=== PATIENT | male | born 1950 | race Caucasian/White ===

== ENCOUNTER 2018-07-01 20:26 | Observation (INO) ==
[2018-07-01] MEDS ORDERED: Sod Chloride 0.9% Inj 1,000 ML IV.SIG ONE (21:18)
--- NOTE | 2018-07-01 21:37 | XR ---
EXAM DATE: 07/01/2018 9:18 PM EDT AGE/SEX: 67 years / Male INDICATIONS: Short of breath. CLINICAL DATA: This is the patient's initial encounter. Patient reports that signs and symptoms have been present for 1 day and indicates a pain score of 0/10. MEDICAL/SURGICAL HISTORY: None. None. COMPARISON: No prior exams available for comparison. FINDINGS: A single AP view of the chest demonstrates the lungs to be symmetrically aerated without evidence of mass, infiltrate or effusion. The cardiomediastinal contours are unremarkable. Osseous structures a re intact. CONCLUSION: Negative examination. Electronically signed by: Jaron Howard MD 07/01/2018 9:36 PM EDT
--- NOTE | 2018-07-01 21:53 | CT ---
EXAM DATE: 07/01/2018 9:30 PM EDT AGE/SEX: 67 years / Male INDICATIONS: Syncopal episode. Found on ground. Dizziness and chest pain. Shortness of breath. CLINICAL DATA: This is the patient's initial encounter. Patient reports that signs and symptoms have been present for 1 day and indicates a pain score of 0/10. MEDICAL/SURGICAL HISTORY: Myocardial infarction. None. RADIATION DOSE: 31.77 CTDI (mGy) COMPARISON: No prior exams available for comparison. TECHNIQUE: CT of the head without contrast. Using automated exposure control and adjustment of the mA and/or kV according to patient size, radiation dose was kept as low as reasonably achievable to ob tain optimal diagnostic quality images. DICOM format image data is available electronically for revi ew and comparison. FINDINGS: Cerebrum: The ventricles are normal for age. No evidence of midline shift, mass lesion, hemorrhage or acute infarction. No extraaxial fluid collections are seen. Posterior Fossa: The cerebellum and brainstem are intact. The 4th ventricle is midline. The cerebe llopontine angle is unremarkable. Extracranial: The visualized portion of the orbits is intact. Skull: The calvaria is intact. No evidence of skull fracture. CONCLUSION: 1. Negative CT Head non contrast. . Electronically signed by: Isaiah Suarez MD 07/01/2018 9:52 PM EDT
--- NOTE | 2018-07-01 21:57 | CT ---
EXAM DATE: 07/01/2018 9:30 PM EDT AGE/SEX: 67 years / Male INDICATIONS: Syncopal episode. Found on ground. CLINICAL DATA: This is the patient's initial encounter. Patient reports that signs and symptoms have been present for 1 day and indicates a pain score of 0/10. MEDICAL/SURGICAL HISTORY: Myocardial infarction. None. RADIATION DOSE: 17.19 CTDI (mGy) COMPARISON: POI, MR LUMBAR SPINE W AND W/O CONTRAST, 05/15/2018. . TECHNIQUE: Contiguous axial images were obtained using helical multirow detector technique. The vol umetric data was post-processed with multiplanar reconstruction in oblique axial, sagittal, and coron al planes. Using automated exposure control and adjustment of the mA and/or kV according to patient s ize, radiation dose was kept as low as reasonably achievable to obtain optimal diagnostic quality neftaly ges. DICOM format image data is available electronically for review and comparison. FINDINGS: Alignment is normal. Multilevel osteophyte formation is seen. There is moderate disc space narrowing at C6-7 with endplate sclerosis and osteophytosis. Prominent C7 superior endplate Schmorl node is not ed. There are no compression deformities. No prevertebral soft tissue swelling. No fracture or listhe sis. CONCLUSION: 1. Degenerative changes without evidence for acute fracture. Electronically signed by: Jaron Howard MD 07/01/2018 9:56 PM EDT
[2018-07-01 21:58] LABS: Baso % (Auto) 0.2 % (0.0-2.0); Eos % (Auto) 0.4 % (0.0-4.0); Hematocrit 43.9 % (39.0-51.0); Hemoglobin 14.9 gm/dL (13.0-17.0); Lymph % (Auto) 17.7 % (9.0-44.0); Mean Corpuscular HGB Conc 34.1 % (32.0-36.0); Mean Corpuscular Hemoglobin 31.6 pg (27.0-34.0); Mean Corpuscular Volume 92.7 fL (80.0-100.0); Mean Platelet Volume 7.6 fL (7.0-11.0); Mono # (Auto) 0.9 th/mm3 (0.0-0.9); Mono % (Auto) 8.4 % (0.0-8.0); Neut # (Auto) 8.1 th/mm3 (1.8-7.7); Neut % (Auto) 73.3 % (16.0-70.0); Platelet Count 261 th/mm3 (150-450); Red Blood Count 4.73 mil/mm3 (4.50-5.90); Red Cell Distribution Width 13.4 % (11.6-17.2)
[2018-07-01 22:15] LABS: Anion Gap 10 meq/L (5-15); Blood Urea Nitrogen 20 mg/dL (7-18); Calcium 8.3 mg/dL (8.5-10.1); Carbon Dioxide 21.7 meq/L (21.0-32.0); Chloride 109 meq/L (98-107); Glomerular Filtration Rate 70 mL/min (>89); Glucose,Random 103 mg/dL (74-106); INR 1.1 Ratio; Magnesium 2.3 mg/dL (1.5-2.5); Potassium 3.4 meq/L (3.5-5.1); Prothrombin Time 10.7 sec (9.8-11.6); Sodium 141 meq/L (136-145)
[2018-07-01 22:22] LABS: Activated Partial Thrombo Time 20.3 sec (24.3-30.1)
--- NOTE | 2018-07-01 22:28 | ED ---
HPI General Chief Complaint: Syncope Stated Complaint: Medical Time Seen by Provider: 07/01/18 21:18 Source: patient, family and EMS Mode of arrival: EMS Limitations: no limitations History of Present Illness HPI narrative: 67-year-old male presents to the emergency department by EMS report from his home where he apparently had an unwitnessed syncopal episode in his front yard. states she was taking the dog for a walk and found him face down in the front yard. Patient was awake but mildly confused upon her arrival. Patient had apparently taken as sublingual nitroglycerin at some time prior to her just after this event did not actually see him take the nitroglycerin. asked him if he was having chest pain and he did not answer her and so she thought perhaps he did not want to tell her he was having chest pain and administered additional several nitroglycerin which she reportedly spit out. Patient states she had to roll him over and that she denies any signs of trauma he had been drinking alcohol and had been very emotionally distraught as he has been having director of business systems problems. Patient here is conversant oriented states that he has been very upset all day poor oral intake admits to drinking 2 alcoholic beverages which he does not typically do and was outside yelling on the phone and then he found himself on the ground with his helping him with a nitroglycerin. Patient does not recall whether he did or does not have chest pain. He has no chest pain at this time. Patient denies any head pain neck pain chest pain back pain abdominal pain pelvic pain or extremity pain. Patient denies any shortness of breath. Patient was not diaphoretic. Patient does complain of nausea. Patient refused Zofran in route by paramedics. Patient continues to complain of nausea at this time. MD complaint: Reports loss of consciousness and collapsed Onset (ago): minute(s) -: minutes(s) Prodromal symptoms: Reports other (Recent argument on phone yelling at his director of business systems very agitated had been drinking alcohol) Witnessed: no Context: Reports during exertion, standing up and alcohol use Injuries sustained associated with event: Reports none Current symptoms: Reports none History: Reports history of CAD; Denies seizure disorder, previous syncopal episode, seizure disorder, pacemaker, AICD and family history of sudden Treatments prior to arrival: Reports none Related Data Home Medications Medication Instructions Recorded Confirmed No Known Home Medications 10/17/18 10/17/18 Allergies Allergy/AdvReac Type Severity Reaction Status Date / Time No Known Allergies Allergy Mild Uncoded 05/01/08 08:43 Review of Systems ROS: all other systems reviewed are negative PMFSH Medical History Medical History Anxiety (Acute) Heart attack (Acute) High cholesterol (Acute) Social History Social History Substance History: No History of Abuse Smoking Status: Never smoker How Often Do You Have a Drink Containing Alcohol: 2 to 3 times a week Recent Travel in [facility] within the Last 8 Weeks: No Recent Out of Country Travel within the Last 8 Weeks: No Immunization History Tetanus Immunization: >5 Years Exam Narrative Exam Narrative: GENERAL: Well-developed well-nourished male in no acute distress no respiratory distress; GCS 15 SKIN: Focused skin assessment warm/dry. HEAD: Atraumatic. Normocephalic. EYES: Pupils equal and round. No scleral icterus. No injection or drainage. ENT: No nasal bleeding or discharge. Mucous membranes pink and moist. NECK: Trachea midline. No JVD. CARDIOVASCULAR: Regular rate and rhythm. No murmur appreciated. RESPIRATORY: No accessory muscle use. Clear to auscultation. Breath sounds equal bilaterally. GASTROINTESTINAL: Abdomen soft, non-tender, nondistended. Hepatic and splenic margins not palpable. MUSCULOSKELETAL: No obvious deformities. No clubbing. No cyanosis. No edema. NEUROLOGICAL: Awake and alert. No obvious cranial nerve deficits. Motor grossly within normal limits. Normal speech. PSYCHIATRIC: Appropriate mood and affect; insight and judgment normal. Course Consultations Consultation #1: Patient discussed with on-call [facility] physician Dr. Gonzalez who recommends patient for observation on the service of Dr. Desirite request observation orders to be entered to the emergency department Initial Documented Vital Signs Temperature 97.5 F L 07/01/18 20:36 Pulse Rate 61 07/01/18 20:36 Respiratory Rate 30 H 07/01/18 20:36 Blood Pressure 155/75 H 07/01/18 20:36 Pulse Oximetry 97 07/01/18 20:36 Last Documented Vital Signs Temperature 97.5 F L 07/01/18 20:50 Pulse Rate 61 07/01/18 23:12 Respiratory Rate 16 07/01/18 23:12 Blood Pressure 144/74 H 07/01/18 23:12 Pulse Oximetry 95 07/01/18 23:12 Medical Decision Making MDM Narrative Medical decision making narrative: 67-year-old male with unwitnessed syncopal episode with history of CAD presents for evaluation placed on patient monitor IV access obtained specimens collected and sent for resulting. EKG sinus rhythm no acute ST elevation or injury pattern change noted Lab values grossly normal range except for mild decreased potassium of 3.4 troponin I is less than 0.02 not elevated serum alcohol however is elevated 141 Chest x-ray reveals no acute process CT brain noncontrast is negative for acute process and CT cervical spine reveals no acute abnormality per reading radiologist Patient's case discussed with on-call [facility] physician Dr. Gonzalez who recommends patient to be admitted as observation to Dr. Cuellar and requests that observation orders to be entered on his behalf with repeat troponin patient has already had his second troponin ordered and will have additional troponin ordered at approximately 3 AM. All further orders per Dr. Gonzalez and Dr. Cuellar. Patient and family informed of lab results and recommendation for observation admission with which they are agreeable Medical Screen Exam Complete: Yes Emergency Medical Condition: Yes Differential Diagnosis Differential Diagnosis: Syncope, arrhythmia, ACS, MT, alcohol intoxication, vasovagal syncope/near syncope, TIA, CVA, seizure, minor closed head injury, ICH , cervical spine sprain strain, dehydration, electrolyte disturbance Medical Records Medical records reviewed: Yes I reviewed the patient's medical records. Lab Data Lab results reviewed: Yes I reviewed the patient's lab results. Result diagrams: 07/01/18 20:27 07/01/18 20:27 Lab Results 07/01/18 07/01/18 07/01/18 Range/Units 20:27 20:27 20:27 WBC 11.0 (4.0-11.0) th/mm3 RBC 4.73 (4.50-5.90) mil/mm3 Hgb 14.9 (13.0-17.0) gm/dL Hct 43.9 (39.0-51.0) % MCV 92.7 (80.0-100.0) fL MCH 31.6 (27.0-34.0) pg MCHC 34.1 (32.0-36.0) % RDW 13.4 (11.6-17.2) % Plt Count 261 (150-450) th/mm3 MPV 7.6 (7.0-11.0) fL Neut % (Auto) 73.3 H (16.0-70.0) % Lymph % (Auto) 17.7 (9.0-44.0) % Dewitt % (Auto) 8.4 H (0.0-8.0) % Eos % (Auto) 0.4 (0.0-4.0) % Baso % (Auto) 0.2 (0.0-2.0) % Neut # (Auto) 8.1 H (1.8-7.7) th/mm3 Lymph # (Auto) 2.0 (1.0-4.8) th/mm3 Dewitt # (Auto) 0.9 (0.0-0.9) th/mm3 Eos # (Auto) 0.0 (0.0-0.4) th/mm3 Baso # (Auto) 0.0 (0.0-0.2) th/mm3 WBC Differential . Differential Comment Auto diff final PT 10.7 (9.8-11.6) sec INR 1.1 Ratio APTT 20.3 L (24.3-30.1) sec Sodium 141 (136-145) meq/L Potassium 3.4 L (3.5-5.1) meq/L Chloride 109 H (98-107) meq/L Carbon Dioxide 21.7 (21.0-32.0) meq/L Anion Gap 10 (5-15) meq/L BUN 20 H (7-18) mg/dL Creatinine 1.06 (0.60-1.30) mg/dL Estimated GFR 70 L (>89) mL/min Random Glucose 103 (74-106) mg/dL Calcium 8.3 L (8.5-10.1) mg/dL Magnesium 2.3 (1.5-2.5) mg/dL Troponin I Less than 0.02 L (0.02-0.05) ng/mL Serum Alcohol (0-5) mg/dL 07/01/18 Range/Units 20:27 WBC (4.0-11.0) th/mm3 RBC (4.50-5.90) mil/mm3 Hgb (13.0-17.0) gm/dL Hct (39.0-51.0) % MCV (80.0-100.0) fL MCH (27.0-34.0) pg MCHC (32.0-36.0) % RDW (11.6-17.2) % Plt Count (150-450) th/mm3 MPV (7.0-11.0) fL Neut % (Auto) (16.0-70.0) % Lymph % (Auto) (9.0-44.0) % Dewitt % (Auto) (0.0-8.0) % Eos % (Auto) (0.0-4.0) % Baso % (Auto) (0.0-2.0) % Neut # (Auto) (1.8-7.7) th/mm3 Lymph # (Auto) (1.0-4.8) th/mm3 Dewitt # (Auto) (0.0-0.9) th/mm3 Eos # (Auto) (0.0-0.4) th/mm3 Baso # (Auto) (0.0-0.2) th/mm3 WBC Differential Differential Comment PT (9.8-11.6) sec INR Ratio APTT (24.3-30.1) sec Sodium (136-145) meq/L Potassium (3.5-5.1) meq/L Chloride (98-107) meq/L Carbon Dioxide (21.0-32.0) meq/L Anion Gap (5-15) meq/L BUN (7-18) mg/dL Creatinine (0.60-1.30) mg/dL Estimated GFR (>89) mL/min Random Glucose (74-106) mg/dL Calcium (8.5-10.1) mg/dL Magnesium (1.5-2.5) mg/dL Troponin I (0.02-0.05) ng/mL Serum Alcohol 141 H (0-5) mg/dL Imaging Data Radiologist's impression: Cervical Spine CT 07/01/18 21:18 CONCLUSION: 1. Degenerative changes without evidence for acute fracture. Chest X-Ray 07/01/18 21:18 CONCLUSION: Negative examination. Head CT 07/01/18 21:18 CONCLUSION: 1. Negative CT Head non contrast. . ECG Data EKG Prior to Arrival: Yes Interpretation: EKG normal sinus rhythm rate [address] elevation or injury pattern change noted, left anterior fascicular block present Discharge Plan Discharge Disposition Patient Disposition: 30 Still Patient Discharge Condition Condition: Stable Discharge Details Diagnosis: Syncope, Alcohol ingestion, History of atherosclerotic heart disease Physicians Team ED Provider: Brook Lubin Primary Care Provider: Alden Romo Attending Provider: Norman Cuellar Discharge Interventions Interventions: Vital Signs Last Done: 07/01/18 23:12 Status ED Status: Admitted Observation Patient
[2018-07-02 05:59] LABS: Creatine Kinase 102 U/L (39-308)
[2018-07-02 06:11] LABS: Creatine Kinase MB 2.1 ng/mL (0.5-3.6)
[2018-07-02 07:27] VITALS: RESP 16
--- NOTE | 2018-07-02 08:10 | P.HPIM ---
History of Present Illness Primary Care Physician: Alden Romo Chief Complaint: Syncope History of Present Illness: Mr. Nam is a pleasant 67 y/o WM with HTN, hyperlipidemia, arthritis and chronic back pain. He was brought [place] [facility] [place] after an unwitnessed syncopal episode. The pt reports that he does not remember what happened. He remembers talking on the phone and then the next thing he remembers was "people poking him." He states that he was talking angrily on the phone with someone as it had been "the worst day of his life" yesterday and he has been under a lot of stress from work. He was outside his house on the phone and his had gone for about a 20 minute walk. His states that when she returned home that the pt was face down on the ground. She shook him and he woke up and was very weak and unable to get up off the ground. She states that she called 9-1-1 and that she gave him Nitro but he spit it back out. He was reportedly given a second dose of Nitro. The pt denies reporting any chest pain. His was concerned about chest pain because he has been having intermittent issues with chest pain for some time. He follows with Dr. Dao Romo as an outpt and recently had a LEXISCAN (05/21/18) which noted basal to mid inferior and inferoseptal inferior pattern without ischemia, normal left ventricular systolic function with a calculated EF 71%. He states that he had not had any food yesterday or water but had drank two Willis and Cokes yesterday after he returned home from work. He typically drinks 2-5 alcoholic beverages per day. Denies any withdrawal symptoms if he doesn't drink alcohol for a few days. There was no reported loss of bowel or bladder function. Denies any headache or unilateral extremity weakness or speech difficulty. He states that when he woke up he was very dizzy and nauseated. In the ED the pt had a Head CT which was negative for any acute changes. CXR was negative. CT of Cervical spine noted some degenerative changes otherwise negative. Serial CE and EKGs have been negative. There has not been any cardiac dysrhythmias on telemetry thus far. Pt denies any previous similar episodes. No hx of seizures or CVA. He reports that he has been out of his medications for about 1 week. They were accidentally thrown away. 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 - Diagnosis (1) Syncope (2) Anxiety (3) HTN (hypertension) (4) Hyperlipidemia Review of Systems Constitutional: Denies chills, Denies fever(s) Eyes: Denies blurry vision, Denies double vision, Denies loss of vision Ears, Nose, Mouth, and Throat: Reports dizziness, Denies headache(s), Denies neck pain Cardiovascular: Denies generalized swelling, Denies rapid, pounding, or irregular heartbeat, Denies shortness of breath Respiratory: Denies cough, Denies shortness of breath, Denies wheezing Gastrointestinal: Denies abdominal pain, Denies constipation, Denies loose stools, Denies nausea, Denies vomiting Genitourinary: Denies urinary frequency, Denies urinary incontinence, Denies urinary urgency Musculoskeletal: Denies back pain, Denies neck pain Skin/Breast: Denies boil, Denies rash, Denies wounds Neurologic: Reports confusion, Reports fainting, Reports memory loss, Denies dizziness, Denies lack of coordination, Denies numbness, Denies tingling/ numbness/burning sensations, Denies tremor(s) Psychiatric: Denies anxiety, Denies depression [facility] - History History Provided By: Patient - Medical History Medical History: Medical History (Last Reviewed 07/02/18 @ 09:24 by Con Lambert) Anxiety Heart attack High cholesterol - Tobacco History Second Hand Smoke Exposure: No Smoking Status: Never smoker - Alcohol History How Often Do You Have a Drink Containing Alcohol: 4 or more times a week - Substance Use History Substance History: Active Abuse - Travel History Recent Travel in the [place] Within the Last 8 Weeks: No Recent Travel Out of the Country Within the Last 8 Weeks: No - Immunization History Tetanus Immunization: >5 Years Medications and Allergies Allergies Allergy/AdvReac Type Severity Reaction Status Date / Time No Known Allergies Allergy Mild Uncoded 05/01/08 08:43 Home Medications Medication Instructions Recorded Confirmed Type aspirin [Aspir-81] 81 mg PO DAILY 07/02/18 07/02/18 History celecoxib 200 mg PO DAILY PRN 07/02/18 07/02/18 History nitroglycerin 0.4 mg SUBLINGUAL Q5-15M PRN 07/02/18 07/02/18 History Exam Vital signs: Vital Signs 07/01/18 20:36 07/01/18 20:38 07/01/18 20:50 Temperature 97.5 F L 97.5 F L Pulse Rate 61 63 63 Respiratory Rate 30 H 23 Blood Pressure 155/75 H 155/75 H Pulse Oximetry 97 98 98 07/01/18 23:12 07/02/18 03:57 07/02/18 07:26 Temperature 98.1 F 98.1 F Pulse Rate 61 55 L 52 L Respiratory Rate 16 19 16 Blood Pressure 144/74 H 148/70 H 155/70 H Pulse Oximetry 95 98 97 Intake & Output 07/01/18 07/02/18 07/02/18 18:59 06:59 18:59 Intake Total 1000 / 1000 Balance 1000 / 1000 Weight 78.48 kg Intake: IV 1000 / 1000 NS Inj 1,000 ML @ Wide Open IV. 1000 / 1000 SIG BOLUS ONE Rx#:[id number] Other: Weight On Admission 78.471 kg Narrative: GENERAL: NAD, AAOx3 SKIN: Warm and dry. HEENT: Atraumatic. Normocephalic. Pupils equal and round. No scleral icterus. No injection or drainage. No nasal bleeding or discharge. Mucous membranes pink and moist. NECK: Trachea midline. No JVD. CARDIO: Regular rate and rhythm. RESP: No accessory muscle use. Clear to auscultation. Breath sounds equal bilaterally. ABD: +BS, soft, non-tender, nondistended. Hepatic and splenic margins not palpable. EXT: Extremities without clubbing, cyanosis, or edema. No obvious deformities. NEURO: Awake and alert. No obvious cranial nerve deficits. Motor grossly within normal limits. Five out of 5 muscle strength in the arms and legs. Normal speech. PSYCH: Appropriate mood and affect; insight and judgment normal. Results - Labs CBC & Chem 7: 07/01/18 20:27 07/01/18 20:27 Labs: Short CBC 07/01/18 Range/Units 20:27 WBC 11.0 (4.0-11.0) th/mm3 Hgb 14.9 (13.0-17.0) gm/dL Hct 43.9 (39.0-51.0) % Plt Count 261 (150-450) th/mm3 BMP 07/01/18 20:27 Sodium 141 Potassium 3.4 L Chloride 109 H Carbon Dioxide 21.7 BUN 20 H Creatinine 1.06 Calcium 8.3 L Cardiac Enzymes 07/01/18 07/02/18 07/02/18 Range/Units 20:27 00:00 05:00 Total Creatine Kinase 102 (39-308) U/L CK-MB (CK-2) 2.1 (0.5-3.6) ng/mL Troponin I Less than 0.02 L Less than 0.02 L Less than 0.02 L (0.02-0.05) ng/mL - Imaging Impressions Cervical Spine CT 07/01/18 21:18 CONCLUSION: 1. Degenerative changes without evidence for acute fracture. Chest X-Ray 07/01/18 21:18 CONCLUSION: Negative examination. Head CT 07/01/18 21:18 CONCLUSION: 1. Negative CT Head non contrast. . Caprini VTE Risk Assessment Caprini VTE Risk Assessment: Moderate/High Risk (score >= 2) Caprini Risk Assessment Model: Point Value = 1 Point Value = 2 Point Value = 3 Point Value = 5 Age 41-60 Minor surgery BMI > 25 kg/m2 Swollen legs Varicose veins or History of unexplained or recurrent spontaneous Oral contraceptives or hormone replacement Sepsis (< 1 month) Serious lung disease, including pneumonia (< 1 month) Abnormal pulmonary function Acute myocardial infarction Congestive heart failure (< 1 month) History of inflammatory bowel disease Medical patient at bed rest Age 61-74 Arthroscopic surgery Major open surgery (> 45 min) Laparoscopic surgery (> 45 min) Malignancy Confined to bed (> 72 hours) Immobilizing plaster cast Central venous access Age >= 75 History of VTE Family history of VTE Factor V Leiden Prothrombin [id number] Lupus anticoagulant Anticardiolipin antibodies Elevated serum homocysteine Heparin-induced thrombocytopenia Other congenital or acquired thrombophilia Stroke (< 1 month) Elective arthroplasty Hip, pelvis, or leg fracture Acute spinal cord injury (< 1 month) Prophylaxis Regimen: Total Risk Factor Score Risk Level Prophylaxis Regimen 0-1 Low Early ambulation 2 Moderate Order ONE of the following: *Sequential Compression Device (SCD) *Heparin 5000 units SQ BID 3-4 Higher Order ONE of the following medications: *Heparin 5000 units SQ TID *Enoxaparin/Lovenox 40 mg SQ daily (WT < 150 kg, CrCl > 30 mL/min) *Enoxaparin/Lovenox 30 mg SQ daily (WT < 150 kg, CrCl > 10-29 mL/min) *Enoxaparin/Lovenox 30 mg SQ BID (WT < 150 kg, CrCl > 30 mL/min) AND/OR *Sequential Compression Device (SCD) 5 or more Highest Order ONE of the following medications: *Heparin 5000 units SQ TID (Preferred with Epidurals) *Enoxaparin/Lovenox 40 mg SQ daily (WT < 150 kg, CrCl > 30 mL/min) *Enoxaparin/Lovenox 30 mg SQ daily (WT < 150 kg, CrCl > 10-29 mL/min) *Enoxaparin/Lovenox 30 mg SQ BID (WT < 150 kg, CrCl > 30 mL/min) AND *Sequential Compression Device (SCD) Assessment and Plan - Assessment (1) Syncope Code(s): R55 - Syncope and collapse Status: Acute Plan: Syncope - Pt is a 67 y/o WM with HTN, hyperlipidemia, arthritis and chronic back pain. - He was brought into the ED [place] [facility] [place] after an unwitnessed syncopal episode. He was reportedly very generally weak after he regained consciousness and had dizziness and nausea. Pt had been drinking alcohol yesterday with serum alcohol of 141 in the ED. He had evidence of dehydration and had not been eating or drinking any other fluids yesterday. There was no reported loss of bowel or bladder function. - He follows with Dr. Dao Romo as an outpt and recently had a LEXISCAN (05/21/18 ) which noted basal to mid inferior and inferoseptal inferior pattern without ischemia, normal left ventricular systolic function with a calculated EF 71%. - Head CT which was negative for any acute changes. - CXR was negative. - CT of Cervical spine noted some degenerative changes otherwise negative. - Serial CE have been negative. - There has not been any cardiac dysrhythmias on telemetry thus far. - He reports that he has been out of his medications for about 1 week. - Check MRI brain, Carotid US, 2D echo - Monitor on telemetry - Holter Monitor - Give 1L more of IVF today, encourage oral intake - PT evaluation - Hold on resuming home BP med until after MRI results - Resume Lexapro, ASA, Simvastatin - SUpportive care - DVT prophylaxis with SCDs HTN - Hold on resuming chlorthalidone until after MRI completed - Clonidine PRN Hyperlipidemia - Resume home meds The exam, history, and the medical decision-making described in the above note were completed with the assistance of the mid-level provider. I reviewed and agree with the findings presented. I attest that I had a [id number] encounter with the patient on the same day, and personally performed and documented my assessment and findings in the medical record. (2) Anxiety Code(s): F41.9 - Anxiety disorder, unspecified Status: Acute (3) HTN (hypertension) Code(s): I10 - Essential (primary) hypertension Status: Acute (4) Hyperlipidemia Code(s): E78.5 - Hyperlipidemia, unspecified Status: Acute H&P: Quality - VTE Deep Vein Thrombosis/Pulmonary Embolism Present on Admission: No (1) Syncope Qualifiers: Syncope type: vasovagal syncope Qualified Code(s): R55 - Syncope and collapse
[2018-07-02] MEDS ORDERED: Acetaminophen 325 MG Tablet PO PRN (08:36)
[2018-07-02] MEDS ORDERED: Escitalopram 10 MG Tablet PO SCH (09:00)
--- NOTE | 2018-07-02 12:02 | MR ---
EXAM DATE: 07/02/2018 11:17 AM EDT AGE/SEX: 67 years / Male INDICATIONS: CVA. Syncopal episode. CLINICAL DATA: This is the patient's subsequent encounter. Patient reports that signs and symptoms h ave been present for 2 days and indicates a pain score of 0/10. MEDICAL/SURGICAL HISTORY: Hypertension. Umbilical hernia repair. COMPARISON: [facility] [place], [place], CT HEAD W/O CONTRAST, 07/01/2018. . TECHNIQUE: Multiplanar, multisequence examination of the brain was performed without contrast. FINDINGS: No evidence for acute infarction on diffusion-weighted images. Ventricles and cisterns are of normal size and configuration. The signal intensity of the brain is normal. No hemorrhage, mass, or infarct. CONCLUSION: 1. Normal exam. Electronically signed by: Jaron Howard MD 07/02/2018 12:00 PM EDT
--- NOTE | 2018-07-02 14:29 | US ---
EXAM DATE: 07/02/2018 12:00 AM EDT AGE/SEX: 67 years / Male INDICATIONS: Syncope. CLINICAL DATA: This is the patient's initial encounter. Patient reports that signs and symptoms have been present for 2 days and indicates a pain score of 0/10. MEDICAL/SURGICAL HISTORY: Myocardial infarction. Hypertension. Hyperlipidemia. Tonsillectomy. Colonoscopy. COMPARISON: . [facility] PARAMETERS: ICA/CCA Ratio: Right 0.7 , Left 1.0 ICA: Right 81 cm/sec, Left 117 cm/sec CCA: Right 115 cm/sec, Left 115 cm/sec ECA: Right 115 cm/sec, Left 136 cm/sec Vertebral: Right 49 cm/sec antegrade, Left 44 cm/sec antegrade FINDINGS: Right Carotid: No significant plaque is visualized.The waveforms are within normal limits. Left Carotid: No significant plaque is visualized. The waveforms are within normal limits. Other: None. CONCLUSION: 1. Right Internal Carotid Artery: No significant stenosis or atherosclerotic plaque is visualized. 2. Left Internal Carotid Artery: No significant stenosis or atherosclerotic plaque is visualized. Electronically signed by: Jelani Bess MD 07/02/2018 2:27 PM EDT
[2018-07-02 15:10] VITALS: BP 128/62; PULSE 64; TEMP 98.4; O2SAT 98
--- NOTE | 2018-07-02 17:01 | ECHRPT ---
Indication: Syncope CONCLUSIONS Normal left ventricular size. Wall thickness is normal. The left ventricular systolic function is normal with an estimated ejection fraction of 60%. Normal wall motion. Trace mitral valve regurgitation. Trileaflet aortic valve. Trace aortic valve regurgitation. There is trace tricuspid valve regurgitation. The estimated pulmonary arterial pressure is 38 mmHg. BP: / HR: Rhythm: MEASUREMENTS (Male / Female) Normal Values Technical Quality:Good 2D ECHO LV Diastolic Diameter PLAX 4.6 cm 4.2 - 5.9 / 3.9 - 5.3 cm LV Systolic Diameter PLAX 2.5 cm IVS Diastolic Thickness 1.1 cm 0.6 - 1.0 / 0.6 - 0.9 cm LVPW Diastolic Thickness 1.1 cm 0.6 - 1.0 / 0.6 - 0.9 cm LV Relative Wall Thickness 0.5 RV Internal Dim ED PLAX 2.8 cm LVOT Diameter 2.0 cm Aortic Root Diameter 2.5 cm LA Systolic Diameter LX 3.6 cm 3.0 - 4.0 / 2.7 - 3.8 cm DOPPLER AV Peak Velocity 151.0 cm/s AV Peak Gradient 9.1 mmHg AI Peak Velocity 379.0 cm/s AI Peak Gradient 57.5 mmHg AI Pressure Half Time 644.0 ms LVOT Peak Velocity 124.0 cm/s LVOT Peak Gradient 6.2 mmHg AV Area Cont Eq pk 2.6 cm Mitral E Point Velocity 80.0 cm/s Mitral A Point Velocity 51.3 cm/s Mitral E to A Ratio 1.6 LV E' Lateral Velocity 12.9 cm/s Mitral E to LV E' Lateral Ratio 6.2 LV E' Septal Velocity 11.6 cm/s Mitral E to LV E' Septal Ratio 6.9 TR Peak Velocity 266.0 cm/s TR Peak Gradient 28.3 mmHg Right Atrial Pressure 10.0 mmHg Pulmonary Artery Systolic Pressu 38.3 mmHg Right Ventricular Systolic Press 38.3 mmHg PV Peak Velocity 109.0 cm/s PV Peak Gradient 4.8 mmHg FINDINGS LEFT VENTRICLE Normal left ventricular size. Wall thickness is normal. The left ventricular systolic function is normal with an estimated ejection fraction of 60%. Normal wall motion. RIGHT VENTRICLE Normal right ventricular size and systolic function. LEFT ATRIUM The left atrial size is normal. RIGHT ATRIUM The right atrial size is normal. ATRIAL SEPTUM Normal atrial septal thickness without atrial level shunting by limited color doppler interrogation. AORTA The aortic root and proximal ascending aorta are normal in size on limited imaging. MITRAL VALVE Trace mitral valve regurgitation. AORTIC VALVE Trileaflet aortic valve. Trace aortic valve regurgitation. TRICUSPID VALVE There is trace tricuspid valve regurgitation. The estimated pulmonary arterial pressure is 38 mmHg. PULMONARY VALVE No pulmonary valve regurgitation or stenosis. VESSELS The inferior vena cava is normal in size. PERICARDIUM No pericardial effusion. John Patel MD (Electronically Signed) Final Date:02 July 2018 17:01
--- NOTE | 2018-07-02 20:09 | ECG ---
Date Performed: 07/02/2018 Time Performed: 03:45:39 PTAGE: 67 years EKG: SINUS BRADYCARDIA MARKED LEFT AXIS DEVIATION ABNORMAL ECG PREVIOUS TRACING : 07/02/2018 00.14 Since the previous tracing, no significant change noted DOCTOR: Dao Romo Interpretating Date/Time 07/02/2018 20:08:22
--- NOTE | 2018-07-02 20:11 | ECG ---
Date Performed: 07/02/2018 Time Performed: 00:14:06 PTAGE: 67 years EKG: SINUS BRADYCARDIA WITH SINUS ARRHYTHMIA MARKED LEFT AXIS DEVIATION MODERATE INTRAVENTRICULA R CONDUCTION DELAY ABNORMAL ECG PREVIOUS TRACING : 07/01/2018 20.38 Since the previous tracing, no significant change noted DOCTOR: Dao Romo Interpretating Date/Time 07/02/2018 20:09:56
--- NOTE | 2018-07-02 20:21 | ECG ---
Date Performed: 07/01/2018 Time Performed: 20:38:39 PTAGE: 67 years EKG: Sinus rhythm WITH SINUS ARRHYTHMIA LEFT ANTERIOR FASCICULAR BLOCK ANTERIOR ST-ELEVATION CONSISTENT WITH EARLY REP OLARIZATION ABNORMALITY ABNORMAL ECG PREVIOUS TRACING : 07/24/1995 07.56 DOCTOR: Dao Romo Interpretating Date/Time 07/02/2018 20:19:06
--- NOTE | 2018-07-04 20:47 | HM ---
Date Performed: 07/02/2018 Time Performed: 17:39:00 HOOKUP DATE: 07/02/18 05:39:00 PM Christine ANALYSIS START TIME: 07/02/2018 5:44:00 PM ANALYSIS END TIME: 07/03/2018 4:23:51 PM PATIENT AGE: 67 PATIENT HEIGHT: 71 PATIENT WEIGHT: 173 DRUG LIST: H85 PATIENT DIAGNOSIS: SYNCOPE TEST NARRATIVE: The patient's average heart rate was 60 BPM. Heart rates greater than 120 B PM were noted < 1% of the time. Heart rates less than 50 BPM were noted 40% of the time. No paus es exceeding 2.0 seconds were noted. 7 ventricular ectopics, which represented < 1% of the total beat count, were noted. The highest ventricular ectopic frequency occurred from 06:00 AM to 07:00 AM Fri. During this time 3 VE(s) occurred. Ventricular ectopics were observed as 4 isolated beat(s) a nd as 1 run(s). 134 supraventricular ectopics, which represented < 1% of the total beat count, we re noted. The highest supraventricular ectopic frequency occurred from 01:00 PM to 02:00 PM Fri. Du ring this time 30 SVE(s) occurred. No episodes of ST depression (defined as -1.0 mm or more) were noted in channel 1. No episodes of ST depression (defined as -1.0 mm or more) were noted in channel 2. No episodes of ST depression (defined as -1.0 mm or more) were noted in channel 3. NO DIARY WAS GIVEN TO PATIENT TEST INTERPRETATION: Sinus rhythm PACs Infrequent PVCs Signed by : Robin Arias
== END 2018-07-02 17:55 | disposition home or self-care (01) ==
LOC: NEPC 20:26 → NEDA 20:26 → NEPHCDU 07-02 02:40
PROVIDERS: ADMIT Hospitalist; ATTEND Hospitalist
DX: R06.02 Shortness of breath; M54.9 Dorsalgia, unspecified; E86.0 Dehydration; G89.29 Other chronic pain; E78.00 Pure hypercholesterolemia, unspecified; F41.9 Anxiety disorder, unspecified; R55 Syncope and collapse; E78.5 Hyperlipidemia, unspecified; M48.061 Spinal stenosis, lumbar region without neurogenic claudication; I25.10 Atherosclerotic heart disease of native coronary artery without angina pectoris; I10 Essential (primary) hypertension; I25.2 Old myocardial infarction; M19.90 Unspecified osteoarthritis, unspecified site